=== PATIENT | female | born 1985 | race Caucasian/White ===

== ENCOUNTER 2021-10-18 14:30 | Emergency (ER) | payer SELFPAY ==
[~2021-10-18] VITALS: Ht 160 cm; Wt 58.5 kg
[2021-10-18] MEDS ORDERED: NS IV 1000 ML 1,000 ML IV STA (15:01)
[2021-10-18] MEDS ORDERED: RT-ALBUTEROL HFA 8.5 GM INHALER IH STA (15:01)
--- NOTE | 2021-10-18 15:05 | ED Cough/URI ---
General Chief Complaint: COVID19 Suspect/Confirmed Stated Complaint: N/V,DIARRHEA,SOB,CHEST HEAVINESS,FEVER,COVID + Source: patient Exam Limitations: no limitations (ANAM CHOU) History of Present Illness Date Seen by Provider: Oct 18, 2021 Time Seen by Provider: 15:03 Initial Comments Patient is a 35-year-old female who presents ED with multiple complaints. Reports flulike symptoms that started yesterday. She states she tested positive for COVID yesterday or. Symptoms started yesterday with body aches, fatigue, nausea, several bouts of diarrhea, body aches, ear fullness , chest tightness described as someone sitting on her chest. She has associated wet cough with difficulty talking or breathing. Chest tightness became worse today. No history of asthma, smoking, coronary artery disease, heart disease. Patient took Tylenol at home for fever. She tested positive at work. Not concern for . (ANAM CHOU) Allergies and Home Medications Allergies Coded Allergies: No Known Drug Allergies (Unverified , 10/18/21) Patient Home Medication List Home Medication List Reviewed: Yes (ANAM CHOU) Methylprednisolone (Medrol Dose pack) 4 Mg Tab, 4 MG PO UD Prescribed by: TIFFANIE CHURCH on 10/18/21 1626 Nirmatrelvir/Ritonavir (Paxlovid 150-100 mg Pack (Eua)) 150 Mg-100 Mg Tablet, 1 EACH PO BID Prescribed by: TIFFANIE CHURCH on 10/18/21 1625 Review of Systems Review of Systems Constitutional: chills, malaise, weakness EENTM: No hearing loss, No ear pain, No blurred vision, No double vision Respiratory: cough, short of breath Cardiovascular: chest pain Gastrointestinal: No abdominal pain; diarrhea, nausea; No vomiting Genitourinary: No decreased output Musculoskeletal: No back pain, No gout Skin: No change in color, No change in hair/nails (ANAM CHOU) All Other Systems Reviewed Negative Unless Noted: Yes (ANAM CHOU) Physical Exam Vital Signs - First Documented 10/18/21 14:48 Temp 36.6 Pulse 77 Resp 22 B/P (MAP) 125/85 (98) Pulse Ox 97 O2 Delivery Room Air (NOY JAMES MD) Capillary Refill : (ANAM CHOU) Height: '" Weight: lbs. oz. 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, no motor/sensory deficits, alert, normal mood/affect, oriented x 3 Skin: normal color, warm/dry (ANAM CHOU) Progress/Results/Core Measures Suspected Sepsis SIRS Temperature: Pulse: Respiratory Rate: Laboratory Tests 10/18/21 15:40: White Blood Count 5.0 Blood Pressure / Mean: Laboratory Tests 10/18/21 15:40: Creatinine 0.65, Platelet Count 245, Total Bilirubin 0.5 (ANAM CHOU) Results/Orders Lab Results Laboratory Tests Test 10/18/21 15:40 Range/Units White Blood Count 5.0 4.3-11.0 10^3/uL Red Blood Count 4.77 3.80-5.11 10^6/uL Hemoglobin 14.3 11.5-16.0 g/dL Hematocrit 42 35-52 % Mean Corpuscular Volume 88 80-99 fL Mean Corpuscular Hemoglobin 30 25-34 pg Mean Corpuscular Hemoglobin Concent 34 32-36 g/dL Red Cell Distribution Width 12.3 10.0-14.5 % Platelet Count 245 130-400 10^3/uL Mean Platelet Volume 9.4 9.0-12.2 fL Immature Granulocyte % (Auto) 0 % Neutrophils (%) (Auto) 60 42-75 % Lymphocytes (%) (Auto) 24 12-44 % Monocytes (%) (Auto) 10 0-12 % Eosinophils (%) (Auto) 5 0-10 % Basophils (%) (Auto) 1 0-10 % Neutrophils # (Auto) 3.0 1.8-7.8 10^3/uL Lymphocytes # (Auto) 1.2 1.0-4.0 10^3/uL Monocytes # (Auto) 0.5 0.0-1.0 10^3/uL Eosinophils # (Auto) 0.3 0.0-0.3 10^3/uL Basophils # (Auto) 0.0 0.0-0.1 10^3/uL Immature Granulocyte # (Auto) 0.0 0.0-0.1 10^3/uL Sodium Level 142 135-145 MMOL/L Potassium Level 3.4 L 3.6-5.0 MMOL/L Chloride Level 108 H 98-107 MMOL/L Carbon Dioxide Level 22 21-32 MMOL/L Anion Gap 12 5-14 MMOL/L Blood Urea Nitrogen 6 L 7-18 MG/DL Creatinine 0.65 0.60-1.30 MG/DL Estimat Glomerular Filtration Rate 118 BUN/Creatinine Ratio 9 Glucose Level 83 70-105 MG/DL Calcium Level 9.5 8.5-10.1 MG/DL Corrected Calcium 9.3 8.5-10.1 MG/DL Total Bilirubin 0.5 0.1-1.0 MG/DL Aspartate Amino Transf (AST/SGOT) 15 5-34 U/L Alanine Aminotransferase (ALT/SGPT) 13 0-55 U/L Alkaline Phosphatase 56 40-136 U/L Troponin I < 0.028 <0.028 NG/ML Total Protein 7.3 6.4-8.2 GM/DL Albumin 4.3 3.2-4.5 GM/DL Serum Test, Qualitative NEGATIVE NEGATIVE (NOY JAMES MD) Vital Signs/I&O 10/18/21 10/18/21 10/18/21 14:48 14:48 17:17 Temp 36.6 36.6 Pulse 77 70 Resp 22 18 B/P (MAP) 125/85 (98) 122/81 Pulse Ox 97 99 O2 Delivery Room Air Room Air Room Air (NOY JAMES MD) Vital Signs/I&O Capillary Refill : (ANAM CHOU) Departure Communication (PCP) Patient with flulike symptoms that started yesterday. Started having difficulty breathing shortness of breath today and wanted to get evaluated. Oxygen level was 95% on home. patient denies of any cardiac or pulmonary diseases. She did have some subtle wheezing was given albuterol inhaler with IV Decadron. Tested positive for COVID outpatient. Chest x-ray was negative for pneumonia. Due to her chest heaviness cardiac work-up was ordered and was unremarkable. Lab work was otherwise unremarkable. She states she feels dehydrated was given a liter of fluid. Patient oxygen on room air was 98 to 99%. She was not tachycardic or hypoxic. Afebrile. Patient with a low heart score. Symptoms appear to be related to the viral infection. Will discharge with Medrol Dosepak and the albuterol inhaler if she starts to feel short of breath which seem to improve some. Chest x-ray was negative for pneumonia suggesting any antibiotic use at this time. She agreed with paxlovid at discharge. She is not on any current medication that is contradicted. Recommend quarantine at home for the next 10 days. If any worsening symptoms to return back to ED such as difficulty breathing. Discussed pulse ox to monitor to use at home. (ANAM CHOU) Impression Primary Impression: COVID-19 Disposition: 01 HOME, SELF-CARE Condition: Stable Departure-Patient Inst. Decision time for Depature: 16:24 (ANAM CHOU) Referrals: GIOVANA CARABALLO MD NO,LOCAL PHYSICIAN (PCP) Primary Care Physician Patient Instructions: COVID-19 (DC) Scripts Methylprednisolone (Medrol Dose pack) 4 Mg Tab 4 MG PO UD for 6 Days, #21 TAB as directed per dose pack Prov: ANAM CHOU 10/18/21 Nirmatrelvir/Ritonavir (Paxlovid 150-100 mg Pack (Eua)) 150 Mg-100 Mg Tablet 1 EACH PO BID for 5 Days, #10 TAB Prov: ANAM CHOU 10/18/21 ATTENDING PHYSICIAN NOTE: I was physically present as attending physician in the emergency department during the care of this patient, but I was not directly involved in the decision making or delivery of care for this patient. (NOY JAMES MD) ANAM CHOU Oct 18, 2021 15:05 NOY JAMES MD Oct 20, 2021 14:13
[2021-10-18 15:47] LABS: BASOPHILS % (AUTO) 1 % (0-10); EOSINOPHILS # (AUTO) 0.3 10^3/uL (0.0-0.3); EOSINOPHILS % (AUTO) 5 % (0-10); HEMATOCRIT 42 % (35-52); HEMOGLOBIN 14.3 g/dL (11.5-16.0); LYMPHOCYTES # (AUTO) 1.2 10^3/uL (1.0-4.0); LYMPHOCYTES % (AUTO) 24 % (12-44); MEAN CORPUSCULAR HEMOGLOBIN 30 pg (25-34); MEAN CORPUSCULAR HGB CONC 34 g/dL (32-36); MEAN CORPUSCULAR VOLUME 88 fL (80-99); MEAN PLATELET VOLUME 9.4 fL (9.0-12.2); MONOCYTES # (AUTO) 0.5 10^3/uL (0.0-1.0); MONOCYTES % (AUTO) 10 % (0-12); NEUTROPHILS % (AUTO) 60 % (42-75); PLATELET COUNT 245 10^3/uL (130-400)
[2021-10-18 15:58] LABS: ALBUMIN 4.3 GM/DL (3.2-4.5); CHLORIDE 108 MMOL/L (98-107); POTASSIUM 3.4 MMOL/L (3.6-5.0); SODIUM 142 MMOL/L (135-145)
[2021-10-18 15:59] LABS: CALCIUM 9.5 MG/DL (8.5-10.1)
[2021-10-18 16:00] LABS: GLUCOSE 83 MG/DL (70-105); TOTAL PROTEIN 7.3 GM/DL (6.4-8.2)
[2021-10-18 16:01] LABS: CARBON DIOXIDE 22 MMOL/L (21-32)
[2021-10-18 16:02] LABS: BILIRUBIN,TOTAL 0.5 MG/DL (0.1-1.0)
[2021-10-18 16:04] LABS: ALKALINE PHOSPHATASE 56 U/L (40-136); CREATININE SERUM 0.65 MG/DL (0.60-1.30); GFR ESTIMATED 118
--- NOTE | 2021-10-18 16:04 | Diagnostic Imaging Report ---
EXAMINATION: Chest 1 view. HISTORY: Cough. Covid positive. COMPARISON: None available. FINDINGS: The lung volumes are normal. No focal consolidation is seen. No large pleural effusion or pneumothorax is seen. The cardiomediastinal silhouette is normal in size and contour. No acute osseous abnormality is seen. IMPRESSION: No acute pleuroparenchymal process. Dictated by: Dictated on workstation # [id number]
[2021-10-18 16:05] LABS: BUN/CREATININE RATIO 9
[2021-10-18 16:07] LABS: ALANINE AMINOTRANSFERASE 13 U/L (0-55)
[2021-10-18] MEDS ORDERED: NIRM1TAB5 PO (16:25)
[2021-10-18] MEDS ORDERED: NF-METHYLP PO (16:26)
[2021-10-18 17:17] VITALS: BP 122/81
== END 2021-10-18 17:18 | disposition home or self-care (01) ==
LOC: ER 14:33
DX: U07.1 COVID-19 (principal); Z73.0 Burn-out
CPT/HCPCS: 36415; 71045; 80053; 84484; 84703; 85025; 93005

== ENCOUNTER → 2022-02-04 | Outpatient (CLI) | payer SELFPAY ==
[~2022-02-04] MED LIST: NF-METHYLP PO; NIRM1TAB5 PO
[2022-02-04 10:22] LABS: HEMATOCRIT 43 % (35-52); HEMOGLOBIN 14.3 g/dL (11.5-16.0); MEAN CORPUSCULAR HEMOGLOBIN 30 pg (25-34); MEAN CORPUSCULAR HGB CONC 33 g/dL (32-36); MEAN CORPUSCULAR VOLUME 91 fL (80-99); MEAN PLATELET VOLUME 9.2 fL (9.0-12.2); PLATELET COUNT 268 10^3/uL (130-400); WHITE BLOOD COUNT 9.8 10^3/uL (4.3-11.0)
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
== END ==
LOC: RAD 09:36
PROVIDERS: ATTEND Nurse Practitioner Family
DX: M79.602 Pain in left arm (principal); S40.022A Contusion of left upper arm, initial encounter; Z87.81 Personal history of (healed) traumatic fracture
CPT/HCPCS: 36415; 73090; 85027; 87040

== ENCOUNTER → 2023-02-09 | Outpatient (CLI) | payer OTHER ==
--- NOTE | 2023-02-09 17:02 | Diagnostic Imaging Report ---
INDICATION: Right groin mass Ultrasound of the right groin shows several small lymph nodes in the inguinal region. None are pathologically enlarged. All have fatty shama. IMPRESSION: There is no evidence of hernia. There are some lymph nodes corresponding to the area of concern. Dictated by: Dictated on workstation # [id number]
== END ==
LOC: RAD 15:13
PROVIDERS: ATTEND Surgery
DX: R59.0 Localized enlarged lymph nodes (principal)
CPT/HCPCS: 76881

== ENCOUNTER 2023-02-16 05:30 | Outpatient (CLI) | payer OTHER ==
[~2023-02-16] VITALS: Ht 160 cm; Wt 64.6 kg
[2023-02-16] MEDS ORDERED: ACHD5005 PO (14:01)
[2023-02-16] MEDS ORDERED: OMEG1CAP58 PO (14:01)
[2023-02-16] MEDS ORDERED: CHOL100L MC (14:01)
[2023-02-16] MEDS ORDERED: NFBIOT1000 PO (14:01)
[2023-02-16] MEDS ORDERED: FERR159T2 PO (14:01)
[2023-02-16] MEDS ORDERED: ZINC7.5T PO (14:01)
[2023-02-16] MEDS ORDERED: TOPI25CA6 PO (14:02)
== END 2023-02-16 15:36 | disposition home or self-care (01) ==
LOC: PREOP 05:30
PROVIDERS: ATTEND Surgery
DX: Z01.818 Encounter for other preprocedural examination (principal)

== ENCOUNTER 2023-02-25 10:32 | Day surgery (SDC) | payer OTHER ==
[2023-02-25] VITALS (10 sets, daily range): BP systolic 101–122; BP diastolic 59–79
[~2023-02-25] VITALS: Ht 160 cm; Wt 64.6 kg
[~2023-02-25 10:32] MED LIST changes: +ACHD5005 PO; +CHOL100L MC; +FERR159T2 PO; +NFBIOT1000 PO; +OMEG1CAP58 PO; +TOPI25CA6 PO; +ZINC7.5T PO
[2023-02-25] MEDS ORDERED: LIDOCAINE 2% w/EPI 1:100,000 20 ML VIAL ONE (11:03)
[2023-02-25] MEDS ORDERED: ceFAZolin INJECTION 1,000 MG in NS (IVPB) 50 ML 50 ML IV ONE (11:15)
[2023-02-25] MEDS ORDERED: LACTATED RINGERS 1,000 ML 1,000 ML IV PRN (11:15)
--- NOTE | 2023-02-25 11:17 | Progress Note-Pre Operative ---
Pre-Operative Progress Note Date H&P Reviewed: Feb 25, 2023 Time H&P Reviewed: 11:15 History & Physical: H&P Reviewed, Patient Examed, No changes noted Pre-Operative Diagnosis: Persistent right inguinal lymphadenopathy BIA REYES APRN Feb 25, 2023 11:17
[2023-02-25] MEDS ORDERED: HYDR-3817 PO (11:19)
--- NOTE | 2023-02-25 11:19 | Discharge Inst-Surgical ---
D/C Lap Instructions-KIDO Reconcile Patient Problems Problems Reviewed?: Yes New, Converted, or Re-Newed RX: RX on Chart Follow Up Appt in 2 weeks Activity as tolerated No driving for 24 hours No driving while on pain medications Regular Diet Symptoms to Report: Fever over 101 degree F, Nausea/Vomiting Infection Signs and Symptoms to report: Increased redness, Foul odor of wound, Increased drainage Bathing instructions: May shower Operative Area Clean/Dry; Keep incision clean/dry If any problems/questions: Contact your physician or go to Emergency Room BIA REYES APRN Feb 25, 2023 11:19
[2023-02-25] MEDS ORDERED: HYDROcodone/ACETAMINOPHEN 5 MG/325 MG TABLET PO ONE (11:30)
[2023-02-25] MEDS ORDERED: ACETAMINOPHEN 325 MG TABLET PO PRN (11:30)
[2023-02-25] MEDS ORDERED: morphine INJ 10 MG/ML 1ML (SYR OR VIAL) IVP PRN (11:30)
[2023-02-25] MEDS ORDERED: ONDANSETRON INJECTION 4 MG/2 ML (SDV) IVP PRN ×2 (11:30→14:15)
[2023-02-25] MEDS ORDERED: MIDAZOLAM INJ 2 MG/2 ML VIAL ONE (12:25)
[2023-02-25] MEDS ORDERED: fentaNYL INJECTION 100 MCG/2 ML VIAL ONE (12:26)
[2023-02-25] MEDS ORDERED: proPOfol INJECTION 200 MG/20 ML VIAL IV ONE (12:27)
[2023-02-25] MEDS ORDERED: LIDOCAINE 2% w/EPI 1:100,000 20 ML VIAL INJ ONE (12:45)
[2023-02-25] MEDS ORDERED: KETOROLAC INJ 30 MG/ML VIAL ONE (13:04)
[2023-02-25] MEDS ORDERED: ONDANSETRON INJECTION 4 MG/2 ML (SDV) ONE (13:12)
[2023-02-25] MEDS ORDERED: SEVOFLURANE (ULTANE) 15 ML INHAL SOLN ONE (13:12)
[2023-02-25] MEDS ORDERED: LIDOCAINE PF 2% 5 ML VIAL ONE (13:12)
--- NOTE | 2023-02-25 13:13 | Progress Note-Post Operative ---
Post-Operative Progess Note Surgeon (s)/Painter Plate (s) Surgeon OVI LEMUS MD Painter Plate: ninoska wilkerson DISEASE MANAGEMENT NURSE Pre-Operative Diagnosis Persistent right inguinal lymphadenopathy Post-Operative Diagnosis same Procedure & Operative Findings Date of Procedure 02/25/23 Procedure Performed/Findings excisional biopsy right superficial inguinal lymph node x2 Anesthesia Type general LMA Estimated Blood Loss Estimated blood loss (mL): minimal Specimens/Packing Specimens Removed right ing lymph nodes x2 OVI LEMUS MD Feb 25, 2023 13:13
--- NOTE | 2023-02-25 14:06 | Anesthesia-General Post-Op ---
General Patient Condition Mental Status/LOC: Same as Preop Cardiovascular: Satisfactory Nausea/Vomiting: Absent Respiratory: Satisfactory Pain: Controlled Complications: Absent Post Op Complications Complications None Follow Up Care/Instructions Patient Instructions None needed. Anesthesia/Patient Condition Patient Condition Patient is doing well, no complaints, stable vital signs, no apparent adverse anesthesia problems. No complications reported per nursing. KENIA LARA CRNA Feb 25, 2023 14:06
[2023-02-25] MEDS ORDERED: morphine INJ 10 MG/ML 1ML (SYR OR VIAL) IVP ONE (14:15)
[2023-02-25] MEDS ORDERED: fentaNYL INJECTION 100 MCG/2 ML VIAL IVP ONE (14:15)
[2023-02-25] MEDS ORDERED: HYDROcodone/ACETAMINOPHEN 5 MG/325 MG TABLET ONE (14:17)
--- NOTE | 2023-02-25 20:01 | OPERATIVE REPORT ---
DATE OF SERVICE: 02/25/2023 ATTENDING PRIMARY CARE PHYSICIAN: Pam Tanner M.D. PREOPERATIVE DIAGNOSIS: Persistent right inguinal lymphadenopathy. POSTOPERATIVE DIAGNOSIS: Persistent right inguinal lymphadenopathy. PROCEDURE: Excisional biopsy, right superficial inguinal lymph node x2. SURGEON: Ovi Lemus M.D. AQUARIUM TANK ATTENDANT: Rodrigue Whalen APRN ANESTHESIA: General laryngeal mask airway. ESTIMATED BLOOD LOSS: Minimal. FINDINGS: Two smooth, slightly enlarged lymph nodes. DISPOSITION: The patient tolerated the procedure well. INDICATIONS: The patient is a 37-year-old female who reports that approximately 4 months ago, she developed a palpable nodule in the right inguinal region, which became painful. Over time, she noticed another lesion. She was seen by her physician and underwent 2 separate rounds of oral antibiotics and the lesions did not regress. She does not report any injury to the right lower extremity as well as no previous or current episodes of inflammation nor infection. Upon palpation, she has two palpable, slightly enlarged right inguinal lymph nodes. DESCRIPTION OF PROCEDURE: The patient was brought to the operating room, laid supine on the table. After adequate IV pain and sedative medications and general laryngeal mask airway intubation, the inguinal region and perineum were prepped and draped in standard surgical fashion. Lidocaine 2% with epinephrine was then used to anesthetize the overlying skin in the right inguinal region. An oblique skin incision was then made using a #15 blade. There were two palpable lymph nodes, which were smoothed and slightly enlarged. Both of these lesions were completely excised using blunt dissection as well as electrocautery with visualization of good hemostasis. Both of these lymph nodes were sent for permanent pathology. Good hemostasis was observed. The subcutaneous tissue was then reapproximated using 3-0 Vicryl interrupted sutures. Skin was closed using 4-0 Monocryl running subcuticular sutures. Wounds were then cleaned and covered with Dermabond. The patient tolerated the procedure well. We will have her keep the area clean and dry and do all of her normal activities, however, no aggressive hyperextension of her core or legs. We will also have her follow up to discuss the pathology results. Job ID: [id number] DocumentID: [id number] Dictated Date: 02/25/2023 13:21:47 Soil Science Teacher Date: 02/25/2023 19:59:00 Dictated By: OVI LEMUS MD
== END 2023-02-25 15:05 | disposition home or self-care (01) ==
LOC: SDC 10:32
PROVIDERS: ATTEND Surgery
DX: R59.0 Localized enlarged lymph nodes (principal); R19.09 Other intra-abdominal and pelvic swelling, mass and lump
CPT/HCPCS: 87081; 88307; 88341; 88342